=== PATIENT | male | born 1985 | race Caucasian/White ===

== ENCOUNTER 2016-06-17 21:29 | Emergency (ER) | payer OTHER ==
[~2016-06-17] VITALS: Ht 175.3 cm; Wt 113.4 kg
[2016-06-17 21:40] VITALS: BP 133/90
--- NOTE | 2016-06-17 21:50 | NUR ---
Patient to [facility].
--- NOTE | 2016-06-17 21:57 | NUR ---
Patient ambulated to bed 02.
--- NOTE | 2016-06-17 21:58 | NUR ---
30Y M BIB SELF C/O NOSE BLEED, LEFT SIDED HEADACHE X 4 DAYS . PT STATES HE HAS HX OF HTN THAT IS UNCONTROLLED . PT DENIES N/V/D; SKIN IS PINK/WARM/DRY; AAOX4 WITH EVEN AND STEADY GAIT; LUNGS CLEAR BL; HR EVEN AND REGULAR; PT DENIES ANY FEVER, CP, SOB, OR COUGH AT THIS TIME; PATIENT STATES PAIN OF 7/10 AT THIS TIME; VSS; PATIENT POSITIONED FOR COMFORT; HOB ELEVATED; BEDRAILS UP X2; BED DOWN. ER MD MADE AWARE OF PT STATUS.
--- NOTE | 2016-06-17 21:59 | NUR ---
Dr. Rocha evaluating patient at bedside.
[2016-06-17] MEDS ORDERED: NACL 0.9% 1,000 ML IV SCH (22:02)
[2016-06-17] MEDS ORDERED: ONDANSETRON 4 MG/2 ML VIAL IVP ONE (22:05)
[2016-06-17] MEDS ORDERED: diphenhydrAMINE 50 MG/ML VIAL IVP ONE (22:05)
--- NOTE | 2016-06-17 22:05 | NUR ---
BENADRLY 50MG/ML WAS NOT ADMINISTER PT STATES HE IS ALLERGIC, ER MD DR BARNES AWARE
--- NOTE | 2016-06-17 23:42 | NUR ---
IV removed, catheter intact and site benign. Applied folded 4x4 gauze and tape to stop bleeding.
[2016-06-17 23:43] VITALS: BP 130/87
--- NOTE | 2016-06-17 23:44 | NUR ---
Patient discharged with v/s stable. Written and verbal after care instructions given and explained. Patient alert, oriented and verbalized understanding of instructions. Ambulatory with steady gait. All questions addressed prior to discharge. ID band removed. Patient advised to follow up with PMD. Rx of LISINOPRIL 2.5MG AND TYLENOL #3 TABS given. Patient educated on indication of medication including possible reaction and side effects. Opportunity to ask questions provided and answered.
== END 2016-06-17 23:44 | disposition home or self-care (01) ==
LOC: MED 21:29
DX: G44.209 Tension-type headache, unspecified, not intractable (principal); I10 Essential (primary) hypertension; R04.0 Epistaxis
CPT/HCPCS: 36415; 80053; 81001; 85025; 96361; 96374; 99285; J1200; J2405; J7030

== ENCOUNTER 2023-12-22 01:50 | Emergency (ER) | payer OTHER ==
[~2023-12-22] VITALS: Ht 175.3 cm; Wt 111.1 kg
[2023-12-22 01:58] VITALS: BP 141/95; PULSE 76; RESP 16; TEMP 97.8; O2SAT 99
[2023-12-22] MEDS ORDERED: ZOLP5TAB1 PO (02:30)
[2023-12-22] MEDS ORDERED: IBUP-2213 PO (02:30)
[2023-12-22] MEDS: IBUPROFEN 600 MG TAB PO ONE (02:36)
[2023-12-22 02:38] VITALS: BP 138/96; PULSE 83; RESP 16; TEMP 97.8; O2SAT 99
== END 2023-12-22 02:38 | disposition home or self-care (01) ==
LOC: MED 01:50
DX: S06.0X0A Concussion without loss of consciousness, initial encounter (principal); I10 Essential (primary) hypertension; Z79.899 Other long term (current) drug therapy; Z88.8 Allergy status to other drugs, medicaments and biological substances; V89.2XXA Person injured in unspecified motor-vehicle accident, traffic, initial encounter; Y93.89 Activity, other specified; Y92.410 Unspecified street and highway as the place of occurrence of the external cause; Y99.8 Other external cause status
CPT/HCPCS: 99283